=== PATIENT | female | born 1985 | race Asian ===

== ENCOUNTER 2019-01-04 14:35 | Emergency (ER) | payer SELFPAY ==
[~2019-01-04] VITALS: Ht 170.2 cm; Wt 515.3 kg
[2019-01-04 14:40] VITALS: BP 129/60; Ht 170.2 cm; Wt 515.3 kg
== END 2019-01-04 18:14 | disposition home or self-care (01) ==
LOC: ED 14:35
DX: L72.3 Sebaceous cyst (principal); L08.9 Local infection of the skin and subcutaneous tissue, unspecified
CPT/HCPCS: J2001